=== PATIENT | female | born 1980 | race Two or more races ===

== ENCOUNTER 2019-05-17 08:06 | Outpatient (CLI) | payer OTHER | END 2019-05-17 15:38 | disposition home or self-care (01) | LOC: LAB 08:06 | DX: N64.4 Mastodynia (principal); N64.59 Other signs and symptoms in breast; N64.9 Disorder of breast, unspecified; R92.0 Mammographic microcalcification found on diagnostic imaging of breast; D51.8 Other vitamin B12 deficiency anemias; I10 Essential (primary) hypertension; D51.1 Vitamin B12 deficiency anemia due to selective vitamin B12 malabsorption with proteinuria; D51.0 Vitamin B12 deficiency anemia due to intrinsic factor deficiency; E03.8 Other specified hypothyroidism; E06.3 Autoimmune thyroiditis; R97.0 Elevated carcinoembryonic antigen [CEA]; R97.8 Other abnormal tumor markers ==